=== PATIENT | female | born 1930 | race Caucasian/White ===

== ENCOUNTER 2019-01-17 09:48 | Observation (INO) ==
[2019-01-17] MEDS ORDERED: Ondansetron 4 MG/2 ML VIAL IVP PRN (10:20)
[2019-01-17] MEDS ORDERED: Acetaminophen 325 MG TABLET PO PRN (10:20)
[2019-01-17] MEDS ORDERED: Isovue-370 500 ML BOTTLE IVP ONE (10:36)
--- NOTE | 2019-01-17 10:36 | Internal Med History&Physical ---
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 Pt woke up early this AM around 4a and went to drink some water but noticed difficulty holding water in her mouth due to the facial weakness. No other problems including no visual changes, no dysphagia, no difficulty speaking. Called her daughter and went to ED. She says she has had similar problem a little over 20 years ago, shortly before her aneurysm surgery, when she was briefly hospitalized for a TIA but her symptoms then went away quickly. She takes her plavix daily. Other than some nausea for the last three days, no other symptoms including no fever, CP, SOB, abd pain, vomiting, diarrhea. In the ED, patient with persistent L facial droop; no aphasia, dysphonia, dysphagia, or limb weakness. CT head without bleed. Per discussion with [facility] ED, the pt refused tPA as well as transfer to [place] should it be warranted, and thus no stroke alert was called and no tele-stroke evaluation was performed. She preferred to stay local for neuro workup, but apparently their hospitalist program refuses TIA/CVA admissions due to no local neurology consultation available. PMH: aneurysm, CAD/NV, HTN, RA, Crohn's, hypothyroidism PSH: thyroidectomy, hysterectomy, aneurysm clipping SH: former smoker, quit ' FH: nothing contributory to current symptoms/differential Allergies: seasonal, but no known drug or food allergies Internal Medicine - H&P: Meds Atenolol 25 mg PO DAILY 01/17/19 [History] All Systems PM: A 10-system review of systems was performed and is negative for pertinent findings except as documented above in the HPI. - Constitutional Vitals: Vital Signs Temp Pulse Resp BP Pulse Ox 01/17/19 12:05 98.4 F 71 14 171/76 97 Intake and Output 01/16/19 01/17/19 01/17/19 23:59 07:59 15:59 Other: # Voids 1 Weight 49.5 kg Patient Weight 01/17/19 23:59 Weight 49.5 kg Exam: General: NAD, good eye contact, well appearing Head: Atraumatic, normocephalic. Face asymmetric, L sided droop Eyes: EOMI, sclerae anicteric ENT: Mucous membranes moist. Normal oral mucosa and dentition. Trachea midline. No cervical lymphadenopathy. Does have small goiter in each side of neck Thoracic: No visible chest wall deformities. Normal breath sounds b/l, no wheezing or crackles Cardio: Normal S1 and S2, regular rate and rhythm, does have systolic murmur Abdomen: Soft, nontender, nondistended. Bowel sounds present. No rebound Extremities: Warm, well perfused. DP pulses 2+ b/l. No clubbing, cyanosis. Does have b/l pitting edema to knees b/l and trace dependent in thighs Skin: Intact. No rashes, bruises, or ulcers Neuro: Awake, fully oriented. Good memory, concentration, attention. Speech fluent. CN intact w exception of L facial muscles with some weakness, able to close mouth and eyes only with difficulty; obvious droop at rest. Strength 5/5 in b/l UE and LE. Able to ambulate w walker. 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 CVA/TIA: OSH CT head without bleed - Frequent Neuro checks - Imaging: TTE, CTA head and neck due to hx aneurysm and unable to get MRI - Labs: lipids, A1c - continue plavix - start Lipitor [address] of zocor 20 tiw - Telemetry monitoring for arrythmia - PT/OT/Speech consults - Swallow screen - Stroke education provided - Neuro consult CAD: home plavix, statin as above HTN: uncontrolled, home triamterene hctz 37.5/25, home atenolol 25 Hypothyroidism: home synthroid 50 mcg RA: home MTX 7.5 mg weekly Crohn's: currently not on meds reportedly due to renal dysfxn Underweight: tiny PPx: lovenox Tele: yes Activity: up w assist FEN: cardiac, no MIVF Lines: PIV Consults: Neuro Code: Full Dispo: obs for CVA, anticipate 1-2 days, will be homegoing
[2019-01-17 13:15] LABS: Basophils % 0.8 %; Eosinophils # 0.1 K/mcL (0.0-0.6); Hematocrit 30.5 % (35.3-44.9); Hemoglobin 9.6 g/dL (11.5-15.4); Immature Granulocytes % 0.5 % (0-4); Lymphocytes # 0.5 K/mcL (0.6-4.6); Lymphocytes % 11.3 %; Mean Corpuscular HGB Conc 31.5 g/dL (31.6-35.5); Mean Corpuscular Hemoglobin 30.5 pg (28.0-33.3); Mean Corpuscular Volume 96.8 fL (83.0-100.0); Mean Platelet Volume 9.5 fL (9.4-12.4); Monocytes # 0.2 K/mcL (0.0-1.3); Monocytes % 4.8 %; Neutrophils # 3.2 K/mcL (1.6-8.9); Platelet Count 254 K/mcL (140-400); Red Blood Count 3.15 M/mcL (3.82-4.97); Red Cell Distribution Width 15.9 % (11.5-14.5); Segmented Neutrophils % 80.6 %
[2019-01-17 13:22] LABS: INR 0.9; Prothrombin Time 10.6 Seconds (9.4-12.1)
[2019-01-17 13:28] LABS: Estimated Average Glucose 148 mg/dl
[2019-01-17 13:33] LABS: Chol/HDL Ratio 2.3 (0-4.9)
[2019-01-17 13:35] LABS: Alanine Aminotransferase 6 Units/L (7-52); Albumin 3.8 g/dL (3.5-5.7); Alkaline Phosphatase 79 Units/L (34-104); Aspartate Amino Transferase 14 Units/L (13-39); BUN/Creatinine Ratio 33 (6-26); Bilirubin,Total 0.3 mg/dL (0.3-1.0); Blood Urea Nitrogen 37 mg/dL (8-23); Calcium 9.3 mg/dL (8.6-10.3); Carbon Dioxide 29 mEq/L (23-29); Chloride 102 mEq/L (98-107); Glucose 116 mg/dL (70-105); Osmolality,Calculated 294 (280-300); Phosphorous 3.4 mg/dL (2.7-4.5); Potassium 4.7 mEq/L (3.5-5.1); Sodium 137 mEq/L (136-145); Total Protein 7.8 g/dL (6.4-8.9); Troponin I < 0.03 ng/mL (< 0.04); eGFR For African Americans 56 (> 60); eGFR For Non-African Americans 46 (> 60)
--- NOTE | 2019-01-17 13:50 | Neurology - Consult Note ---
<Roc Browning J - Last Filed: 01/17/19 13:44> Date of Encounter: 01/17/19 Time of Encounter: 13:44 Assessment and Plan (1) CVA (cerebral vascular accident) Current Visit: Yes Status: Acute Neurology seeing in c/s for suspected CVA LKW 2100 yesterday evening; She awoke this morning at 0430 with left facial droop and dysphagia No speech/language difficulty and no sensory loss or focal weakness, no autonomic symptoms No prior h/o CVA, but significant family hx with both mother and father having CVA Refused TPA or transfer to [facility] Risk factors include Age, CAD, HTN, former smoking history and family history She endorses a history of brain aneurysm in 1999 with clipping procedure CTA head and neck are ordered and pending Get repeat CT head in the morning Echocardiogram Carotid Duplex scan With CAD currently on Plavix and Statin; recommending continuing; she reports she cannot tolerate ASA Dysphagia screening now; NPO until dysphagia screening completed Allow permissive HTN with goal SBP less than 180 NIHSS as per protocol Neurological assessments as per protocol Maintain HOB greater than 30 degrees Qualifiers: CVA mechanism: unspecified Qualified Code(s): I63.9 - Cerebral infarction, unspecified History of Present Illness Chief complaint: r/o CVA HPI: Ms. BONE is a 88 year old female with a history of brain aneurysm S/P clipping in 1999, CAD/UT, HTN, RA, hypothyroidism and Crohn's disease. She presents to [facility] with concerns for stroke. The patient reports that her last known well was approximately 9 PM yesterday evening. She awoke around 4:30 this morning to get a drink of water and noticed that she was unable to hold the water in her mouth. Thereafter she noticed a left facial droop prompting her to seek evaluation for stroke. The patient denies any personal history of stroke but admits to significant family history including both mother and father previously having CVAs. She denies any visual disturbance, headaches, head or neck stiffness, dizziness, dysarthria, speech last night which dysfunction, paresthesias or focal weakness. Additionally, she denies chest pain, shortness of breath, palpitations, nausea, vomiting, abdominal pain, fevers, chills, dysuria or hematuria. At the time of my assessment this afternoon her left facial asymmetry of the left mouth persists. Of note, due to history of aneurysmal clipping she is unable to undergo MRI. The internal medicine team has ordered CT angiogram of the head and neck and these are pending. We will repeat CT imaging in the morning. The CBC was reviewed and revealed a mild anemia stable at 9.6. CMP withing showing GFR of 46 baseline unclear, and lipid panel as within expected range. Neurology will continue to follow and provide assistance with CVA workup. Past Med Surg Social Fam HX - Past Medical History Additional medical history: brain aneeurysm,chrons,hypothyroidism, goiter,RA, Anemia, coil placement Psychiatric history: anxiety - Past Surgical History Surgical History: hysterectomy Additional surgical history: partial thyroidectomy, stomach surgery, - Social History Smoking Status: Former smoker Packs per day: less than pack a day Smokeless Tobacco Status: No Alcohol use: none Drug use: none - Family History Mother Hx Family Neuromuscular Disorders: Yes (CVA) Father Hx Family Neuromuscular Disorders: Yes (CVA) Medications and Allergies Atenolol [Tenormin] 25 mg PO DAILY 01/17/19 [History] Clopidogrel [Plavix] 75 mg PO Q48H 01/17/19 [History] Ferrous Sulfate [Iron] 325 mg PO BID 01/17/19 [History] Folic Acid 1 mg PO BID 01/17/19 [History] LORazepam [Ativan] 0.25 mg PO DAILY PRN 01/17/19 [History] Levothyroxine [Synthroid] 50 mcg PO SUTUTHSA 01/17/19 [History] Methotrexate [Otrexup] 7.5 mg PO TH 01/17/19 [History] Simvastatin [Zocor] 20 mg PO MOWEFR 01/17/19 [History] Triamterene/HCTZ 37.5/25mg [Dyazide] 1 tab PO DAILY 01/17/19 [History] Allergy/AdvReac Type Severity Reaction Status Date / Time Penicillins [PCN] Allergy Rash Verified 01/17/19 19:04 phenytoin [From Dilantin] Allergy Redness of Verified 01/17/19 19:04 Skin aspirin [ASA] AdvReac Nose Bleed Verified 01/17/19 19:04 All Systems: The remainder of the systems were reviewed and are negative Review of Systems: REVIEW OF SYSTEMS GENERAL: Negative for any nausea, vomiting, fevers, chills NEUROLOGIC: Negative for any blurry vision, blind spots, double vision, dysarthria, hemiparesis, hemisensory deficits, vertigo, ataxia, seizures, paralysis, tingling, numbness, unilateral weakness or numbness/tingling Positive- left facial droop, dysphagia HEENT: Negative for any head trauma, neck trauma The remainder of the review of systems reviewed and found to be negative Physical Examination - Vital Signs Vital Signs: Initial Vital Signs Temp Pulse Resp BP Pulse Ox 98.4 F 71 14 171/76 97 01/17/19 12:05 01/17/19 12:05 01/17/19 12:05 01/17/19 12:01/17/19 12:05 - Exam Exam: Examination: General Examination: *CONSTITUTIONAL: Alert and oriented x3, no acute distress *GENERAL APPEARANCE OF PATIENT appears healthy and well groomed *EYES: pupils equal, round, reactive to light and accommodation, conjunctiva clear *CARDIOVASCULAR: no peripheral edema, distal temperature normal, dorsalis pedis pulses normal. Refer to vital signs * MUSCULOSKELETAL: *GAIT AND STATION: chronic left leg weakness and shuffling gait, no ataxia seen, no spasticity but her gait is shuffled *ASSESSMENT OF MUSCLE STRENGTH IN THE UPPER AND LOWER EXTREMITIES bilateral deltoid, bicep, tricep, beauty artist strength, hip flexors ,anterior tibialis, dorsoflexion of the foot 4/5 *MUSCLE TONE IN THE UPPER AND LOWER EXTREMITIES normal. No abnormal movements, fasciculations or atrophy identified. Neurological: *ORIENTATION to person, situation, time and place *LANGUAGE AND FUNCTION no significant aphasia or dysarthia was noted. *ATTENTION AND CONCENTRATION are normal *LANGUAGE FUNCTION no significant aphasia or dysarthia was noted. *FUND OF KNOWLEDGE aware of current events, past history, vocabulary *MENTAL attention span and concentration normal. *CN II optic fundi were normal, no papilledema noted. *CN III,IV, PERRLA extraocular eye movements were full, no nystagmus and no ptosis noted. *CN V shows normal sensation and jaw opens symmetrically. *CN VII left facial droop along the mouth *CN VIII shows no significant hearing loss on exam *CN IX-X palate elevated symmetrically *CN XI normal strength in the sternocleidomastoid muscles, symmetrical shoulder shrugging. *CN XII tongue protruded in the midline, with normal strength and movement. *SENSORY EXAMINATION light touch intact *REFLEXES: deep tendon reflexes were normal and symmetrical , grade 1/4 diffusely, no pathological reflexes were noted. *CEREBELLAR TESTING normal finger to nose, heel/knee/reyes *PAIN LEVEL 0/10 Results - Laboratory Findings CBC and BMP: 01/17/19 13:01 01/17/19 13:01 Abnormal lab findings: Abnormal lab results WBC 4.0 K/mcL (4.3-11.1) L 01/17/19 13:01 RBC 3.15 M/mcL (3.82-4.97) L 01/17/19 13:01 Hgb 9.6 g/dL (11.5-15.4) L 01/17/19 13:01 Hct 30.5 % (35.3-44.9) L 01/17/19 13:01 MCHC 31.5 g/dL (31.6-35.5) L 01/17/19 13:01 RDW 15.9 % (11.5-14.5) H 01/17/19 13:01 Lymphocytes # 0.5 K/mcL (0.6-4.6) L 01/17/19 13:01 BUN 37 mg/dL (8-23) H 01/17/19 13:01 Est GFR ( Amer) 56 (> 60) L 01/17/19 13:01 Est GFR (Non-Af Amer) 46 (> 60) L 01/17/19 13:01 BUN/Creatinine Ratio 33 (6-26) H 01/17/19 13:01 Glucose 116 mg/dL (70-105) H 01/17/19 13:01 ALT 6 Units/L (7-52) L 01/17/19 13:01 Globulin 4.0 g/dL (2.4-3.5) H 01/17/19 13:01 Albumin/Globulin Ratio 1.0 (1.1-2.2) L 01/17/19 13:01 HDL Cholesterol 72 mg/dL (40-59) H 01/17/19 13:01 Consult Discharge Plan - Plan Referrals: Joaquim Bahena MD [Primary Care Provider] - <Thompson Vargas I - Last Filed: 01/18/19 08:53> Date of Encounter: 01/17/19 Assessment and Plan (1) CVA (cerebral vascular accident) Current Visit: Yes Status: Acute I have personally performed a face to face diagnostic evaluation, including HPI, EXAM, which is included in the Assesment and plan, which was discussed with Roc Browning CNP, I agree with the above outlined documentation. Patient likely has suffered a small brainstem stroke considering facial drooping as well as difficulty with swallowing though no other focal motor deficit noted She does have an history of brain aneurysm clipping no evidence of any bleed on CT scan We will continue to monitor repeat imaging studies tomorrow Thompson Vargas MD. Neurology Qualifiers: CVA mechanism: unspecified Qualified Code(s): I63.9 - Cerebral infarction, unspecified History of Present Illness HPI: Ms. BONE is a 88 year old female All Systems: The remainder of the systems were reviewed and are negative Physical Examination - Vital Signs Vital Signs: Initial Vital Signs Temp Pulse Resp BP Pulse Ox 98.4 F 71 14 171/76 97 01/17/19 12:05 01/17/19 12:05 01/17/19 12:05 01/17/19 12:05 01/17/19 12:05 Results - Laboratory Findings CBC and BMP: 01/18/19 04:13 01/18/19 04:13 Abnormal lab findings: Abnormal lab results WBC 4.0 K/mcL (4.3-11.1) L 01/17/19 13:01 RBC 3.15 M/mcL (3.82-4.97) L 01/17/19 13:01 Hgb 9.6 g/dL (11.5-15.4) L 01/17/19 13:01 Hct 30.5 % (35.3-44.9) L 01/17/19 13:01 MCHC 31.5 g/dL (31.6-35.5) L 01/17/19 13:01 RDW 15.9 % (11.5-14.5) H 01/17/19 13:01 Lymphocytes # 0.5 K/mcL (0.6-4.6) L 01/17/19 13:01 BUN 37 mg/dL (8-23) H 01/17/19 13:01 Est GFR ( Amer) 56 (> 60) L 01/17/19 13:01 Est GFR (Non-Af Amer) 46 (> 60) L 01/17/19 13:01 BUN/Creatinine Ratio 33 (6-26) H 01/17/19 13:01 Glucose 116 mg/dL (70-105) H 01/17/19 13:01 Hemoglobin A1c 6.8 % (-5.6) H 01/17/19 13:01 ALT 6 Units/L (7-52) L 01/17/19 13: Globulin 4.0 g/dL (2.4-3.5) H 01/17/19 13:01 Albumin/Globulin Ratio 1.0 (1.1-2.2) L 01/17/19 13:01 HDL Cholesterol 72 mg/dL (40-59) H 01/17/19 13:01
[2019-01-18 04:56] LABS: Hematocrit 27.4 % (35.3-44.9); Hemoglobin 8.9 g/dL (11.5-15.4); Mean Corpuscular HGB Conc 32.5 g/dL (31.6-35.5); Mean Corpuscular Hemoglobin 31.2 pg (28.0-33.3); Mean Corpuscular Volume 96.1 fL (83.0-100.0); Platelet Count 245 K/mcL (140-400); Red Blood Count 2.85 M/mcL (3.82-4.97); Red Cell Distribution Width 15.6 % (11.5-14.5); White Blood Count 5.8 K/mcL (4.3-11.1)
[2019-01-18 05:17] LABS: Calcium 8.7 mg/dL (8.6-10.3); Magnesium 1.9 mg/dL (1.6-2.6); Potassium 4.4 mEq/L (3.5-5.1)
[2019-01-18] MEDS ORDERED: *HR* Enoxaparin 30 MG/0.3 ML SYRINGE SQ SCH (06:00)
[2019-01-18] MEDS ORDERED: *HR* LORazepam 0.5 MG TABLET PO PRN (08:05)
--- NOTE | 2019-01-18 08:57 | Internal Med Progress Note ---
Hospitalist Progress Note - Encounter Date of Encounter: 01/18/19 Time of Encounter: 08:54 - Subjective Interval History: Ms. BONE is a 88 year old female with a history of brain aneurysm S/P clipping in 1999, CAD/AR, HTN, RA, hypothyroidism and Crohn's disease. She presents to [facility] with concerns for stroke. The patient reports that her last known well was approximately 9 PM yesterday evening. She awoke around 4:30 this morning to get a drink of water and noticed that she was unable to hold the water in her mouth. Currently on Plavix. CT/CTA head showed acute infarct within the right parietal lobe and H indeterminate but possible acute or subacute infarct within the right frontal lobe, occlusion of proximal right vertebral artery, and status post aneurysm clipping changes. Neurology was consulted. Patient seen and examined in the room. Left facial droop noted. She was able to eat breakfast without signs of aspiration. Speech therapist just evaluated patient. - Exam Vitals: Temp Pulse Resp BP Pulse Ox 98.2 F 60 14 140/72 97 01/18/19 07:26 01/18/19 07:26 01/18/19 07:26 01/18/19 07:26 01/18/19 07:26 Exam: General: NAD, good eye contact, well appearing Head: Atraumatic, normocephalic. Face asymmetric, L sided droop Eyes: EOMI, sclerae anicteric ENT: Mucous membranes moist. Normal oral mucosa and dentition. Trachea midline. No cervical lymphadenopathy. Does have small goiter in each side of neck Thoracic: No visible chest wall deformities. Normal breath sounds b/l, no wheezing or crackles Cardio: Normal S1 and S2, regular rate and rhythm, does have systolic murmur Abdomen: Soft, nontender, nondistended. Bowel sounds present. No rebound Extremities: Warm, well perfused. DP pulses 2+ b/l. No clubbing, cyanosis. Does have b/l pitting edema to knees b/l and trace dependent in thighs Skin: Intact. No rashes, bruises, or ulcers Neuro: Awake, fully oriented. Good memory, concentration, attention. Speech fluent. CN intact w exception of L facial muscles with some weakness, able to close mouth and eyes only with difficulty; obvious droop at rest. Strength 5/5 in b/l UE and LE. Able to ambulate w walker. - Assessment and Plan (1) CVA (cerebral vascular accident) Current Visit: Yes Status: Acute Assessment and Plan: 88 year old female presented with left side facial droop. CT and CTA showed right parietal acute CVA and right subacute frontal CVA, and occlusion of right vertebral artery. Patient currently takes Plavix. Speech therapy was consulted, appreciate help. Neurology following, appreciate help. (2) CAD (coronary artery disease) Current Visit: No Status: Chronic Assessment and Plan: No chest pain, continue home medications. (3) HTN (hypertension) Current Visit: No Status: Chronic Assessment and Plan: BP controlled, continue home medications. (4) Hypothyroidism Current Visit: No Status: Chronic Assessment and Plan: Currently not on any medications, continue monitoring. (5) Crohn disease Current Visit: No Status: Chronic Assessment and Plan: On remission, continue home medication. (6) DVT prophylaxis Current Visit: Yes Status: Acute Assessment and Plan: Continue Lovenox. - Time Spent with Patient Total time spent is greater than 50% in coordination of care (as documented) at patient's floor/unit and/or counseling patient: Greater than 35 minutes Plan of Care Discussed with: patient Internal Medicine: Result - Labs CBC & Chem 7: 01/18/19 04:13 01/18/19 04:13 Labs: Short CBC 01/17/19 01/18/19 Range/Units 13:01 04:13 WBC 4.0 L 5.8 (4.3-11.1) K/mcL Hgb 9.6 L 8.9 L (11.5-15.4) g/dL Hct 30.5 L 27.4 L (35.3-44.9) % Plt Count 254 245 (140-400) K/mcL Neutrophils # 3.2 (1.6-8.9) K/mcL BMP 01/17/19 01/18/19 13:01 04:13 Sodium 137 136 Potassium 4.7 4.4 Chloride 102 102 Carbon Dioxide 29 26 BUN 37 H 39 H Creatinine 1.12 1.17 Glucose 116 H 102 Calcium 9.3 8.7 Cardiac Enzymes 01/17/19 Range/Units 13:01 Troponin I < 0.03 (< 0.04) ng/mL Liver Function 01/17/19 Range/Units 13:01 Total Bilirubin 0.3 (0.3-1.0) mg/dL AST 14 (13-39) Units/L ALT 6 L (7-52) Units/L Alkaline Phosphatase 79 (34-104) Units/L Albumin 3.8 (3.5-5.7) g/dL - ABG Interpretation ABG results: PT/INR, D-dimer PT 10.6 Seconds (9.4-12.1) 01/17/19 13:01 - Impressions Impressions Head CTA 01/17/19 10:36 IMPRESSION: Acute infarct within the high right parietal lobe. Age-indeterminate but possibly acute or subacute infarct within the right frontal lobe. Status post aneurysm clipping with large aneurysmal remnant measuring up to 13.2 mm in diameter within the right sylvian fissure. 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 No large vessel occlusion identified within the head. Incidentally noted pulmonary emphysema and thyroid nodules. Findings were discussed with Dr. Hernández At 8:37 pm on 01/17/2019. RECOMMENDATIONS: Managing Incidental Thyroid Nodule Detected at CT or MRI or US 1. Further evaluation by thyroid Ultrasound recommended for these incidental nodules: Patient Age 18 years or less - Nodule of any size Patient Age 19-34 years old - Nodule 1 cm in size or greater Patient Age 35 years or more - Nodule 1.5 cm in size or greater 2. Follow up thyroid ultrasound also recommend in these scenarios - Solitary nodule with high risk imaging features (locally invasive nodule or suspicious lymph nodes) - Heterogeneous, enlarged thyroid gland. - Increased uptake on PET 3. NO further imaging is recommended in the following scenarios - Any nodule not meeting above criteria. - Those patients with limited life expectancy or significant Co-morbidities. Note: These recommendations do not apply to pts. w/ increased risk for thyroid cancer or pts. with symptomatic thyroid disease. Recommendations for f/u of Incidental Thyroid Nodules (ITN) found on CT, MR, NM and Extrathyroidal US are based upon the ACR white paper and Luke 3-tiered system for managing ITNs: J Am Lucie Radiol. 2015 Jun;12(2): 143-50 D/ / Israel Park MD / Israel Park MD Interpreting Provider: Israel Park MD Neck CTA 01/17/19 10:36 IMPRESSION: Acute infarct within the high right parietal lobe. Age-indeterminate but possibly acute or subacute infarct within the right frontal lobe. Status post aneurysm clipping with large aneurysmal remnant measuring up to 13.2 mm in diameter within the right sylvian fissure. 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 No large vessel occlusion identified within the head. Incidentally noted pulmonary emphysema and thyroid nodules. Findings were discussed with Dr. Hernández At 8:37 pm on 01/17/2019. RECOMMENDATIONS: Managing Incidental Thyroid Nodule Detected at CT or MRI or US 1. Further evaluation by thyroid Ultrasound recommended for these incidental nodules: Patient Age 18 years or less - Nodule of any size Patient Age 19-34 years old - Nodule 1 cm in size or greater Patient Age 35 years or more - Nodule 1.5 cm in size or greater 2. Follow up thyroid ultrasound also recommend in these scenarios - Solitary nodule with high risk imaging features (locally invasive nodule or suspicious lymph nodes) - Heterogeneous, enlarged thyroid gland. - Increased uptake on PET 3. NO further imaging is recommended in the following scenarios - Any nodule not meeting above criteria. - Those patients with limited life expectancy or significant Co-morbidities. Note: These recommendations do not apply to pts. w/ increased risk for thyroid cancer or pts. with symptomatic thyroid disease. Recommendations for f/u of Incidental Thyroid Nodules (ITN) found on CT, MR, NM and Extrathyroidal US are based upon the ACR white paper and Luke 3-tiered system for managing ITNs: J Am Lucie Radiol. 2015 Jun;12(2): 143-50 D/ / Israel Park MD / Israel Park MD Interpreting Provider: Israel Park MD Consult Discharge Plan - Plan Referrals: Joaquim Bahena MD [Primary Care Provider] - _ (1) CVA (cerebral vascular accident) Qualifiers: CVA mechanism: unspecified Qualified Code(s): I63.9 - Cerebral infarction, unspecified (2) CAD (coronary artery disease) Qualifiers: Coronary Disease-Associated Artery/Lesion type: [place] artery [place] vs. transplanted heart: [place] heart Associated angina: without angina Qualified Code(s): I25.10 - Atherosclerotic heart disease of [place] coronary artery without angina pectoris (3) HTN (hypertension) Qualifiers: Hypertension type: essential hypertension Qualified Code(s): I10 - Essential (primary) hypertension (4) Hypothyroidism Qualifiers: Hypothyroidism type: unspecified Qualified Code(s): E03.9 - Hypothyroidism, unspecified (5) Crohn disease Qualifiers: Digestive disease complication type: unspecified complication
[2019-01-18] MEDS ORDERED: Folic Acid 1 MG TABLET PO SCH (09:00)
--- NOTE | 2019-01-18 09:42 | Neurology Progress Note ---
<Roc Browning J - Last Filed: 01/18/19 09:33> Date of Encounter: 01/18/19 Time of Encounter: 09:33 Assessment and Plan (1) CVA (cerebral vascular accident) Current Visit: Yes Status: Acute Acute CVA with left facial droop; no other neurological deficits Unable to have MRI d/t surgical clipping CTA revrealed an acute infarct within the high right parietal lobe and at age- indeterminate but possibly acute versus subacute infarct within the right frontal lobe Further, the CT angiogram revealed occlusion of the proximal right vertebral art abdi and no large vessel occlusion is identified within the head. Clinically, she remains stable without development of further neurological deficits She is already on both Plavix and statin medication and we are recommending continuation of these meds Continue with neurological assessments per protocol Continue with PT/OT and speech therapy Otherwise continuous medical and supportive care Please ensure follow-up with neurology in 7-10 days of discharge Qualifiers: CVA mechanism: unspecified Qualified Code(s): I63.9 - Cerebral infarction, unspecified Subjective Principal diagnosis: CVA Interval history: Ms. Jackson is an 88-year-old female who is being seen in follow-up for suspected CVA. Left-sided facial droop persists morning however, clinically she remained stable without any further neurological deficits. She denies any additional complaints. Objective - Constitutional Vitals: Temp Pulse Resp BP Pulse Ox 98.2 F 60 14 140/72 97 01/18/19 07:26 01/18/19 07:26 01/18/19 07:26 01/18/19 07:26 01/18/19 07:26 Exam: Examination: General Examination: *CONSTITUTIONAL: Alert and oriented x3, no acute distress *GENERAL APPEARANCE OF PATIENT appears healthy and well groomed *EYES: pupils equal, round, reactive to light and accommodation, conjunctiva clear without masses or ulcerations, fundi normal. *CARDIOVASCULAR: no peripheral edema, distal temperature normal, dorsalis pedis pulses normal. Refer to vital signs * MUSCULOSKELETAL: *GAIT AND STATION: normal, with normal Romberg testing, no abnormalities such as broad base gait or spasticity *ASSESSMENT OF MUSCLE STRENGTH IN THE UPPER AND LOWER EXTREMITIES bilateral deltoid, bicep, tricep, foam rubber molder strength, hip flexors ,anterior tibialis, dorsoflexion of the foot 5/5 *MUSCLE TONE IN THE UPPER AND LOWER EXTREMITIES normal. No abnormal movements, fasciculations or atrophy identified. Neurological: *ORIENTATION to person, situation, time and place *LANGUAGE AND FUNCTION no significant aphasia or dysarthia was noted. *ATTENTION AND CONCENTRATION are normal *LANGUAGE FUNCTION no significant aphasia or dysarthia was noted. *FUND OF KNOWLEDGE aware of current events, past history, vocabulary *MENTAL attention span and concentration normal. *CN II optic fundi were normal, no papilledema noted. *CN III,IV, PERRLA extraocular eye movements were full, no nystagmus and no ptosis noted. *CN V left facial droop *CN VIIdecreased facial movement on let side of mouth *CN VIII shows no significant hearing loss on exam *CN IX-Xpalate elevated symmetrically *CN XI normal strength in the sternocleidomastoid muscles, symmetrical shoulder shrugging. *CN XII tongue protruded in the midline, with normal strength and movement. *SENSORY EXAMINATION light touch intact *REFLEXES: deep tendon reflexes were normal and symmetrical , grade 2/4 diffusely, no pathological reflexes were noted. *CEREBELLAR TESTING normal finger to nose, heel/knee/reyes *PAIN LEVEL 0/10 Results - Laboratory Findings CBC and BMP: 01/18/19 04:13 01/18/19 04:13 Abnormal lab findings: Abnormal lab results WBC 4.0 K/mcL (4.3-11.1) L 01/17/19 13:01 RBC 2.85 M/mcL (3.82-4.97) L 01/18/19 04:13 Hgb 8.9 g/dL (11.5-15.4) L 01/18/19 04:13 Hct 27.4 % (35.3-44.9) L 01/18/19 04:13 MCHC 31.5 g/dL (31.6-35.5) L 01/17/19 13:01 RDW 15.6 % (11.5-14.5) H 01/18/19 04:13 Lymphocytes # 0.5 K/mcL (0.6-4.6) L 01/17/19 13:01 BUN 39 mg/dL (8-23) H 01/18/19 04:13 Est GFR ( Amer) 53 (> 60) L 01/18/19 04:13 Est GFR (Non-Af Amer) 44 (> 60) L 01/18/19 04:13 BUN/Creatinine Ratio 33 (6-26) H 01/18/19 04:13 Glucose 116 mg/dL (70-105) H 01/17/19 13:01 Hemoglobin A1c 6.8 % (-5.6) H 01/17/19 13:01 ALT 6 Units/L (7-52) L 01/17/19 13:01 Globulin 4.0 g/dL (2.4-3.5) H 01/17/19 13:01 Albumin/Globulin Ratio 1.0 (1.1-2.2) L 01/17/19 13:01 HDL Cholesterol 72 mg/dL (40-59) H 01/17/19 13:01 Consult Discharge Plan - Plan Referrals: Joaquim Bahena MD [Primary Care Provider] - 01/28/19 10:00 am <Thompson Vargas I - Last Filed: 01/18/19 11:36> Date of Encounter: 01/18/19 Assessment and Plan (1) CVA (cerebral vascular accident) Current Visit: Yes Status: Acute I have personally performed a face to face diagnostic evaluation, including HPI, EXAM, which is included in the Assesment and plan, which was discussed with Roc Browning CNP, I agree with the above outlined documentation. 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 NeurologyI Qualifiers: CVA mechanism: unspecified Qualified Code(s): I63.9 - Cerebral infarction, unspecified Objective - Constitutional Vitals: Temp Pulse Resp BP Pulse Ox 98.3 F 60 17 130/68 99 01/18/19 10:55 01/18/19 10:55 01/18/19 10:55 01/18/19 10:55 01/18/19 10:55 Results - Laboratory Findings CBC and BMP: 01/18/19 04:13 01/18/19 04:13 Abnormal lab findings: Abnormal lab results WBC 4.0 K/mcL (4.3-11.1) L 01/17/19 13:01 RBC 2.85 M/mcL (3.82-4.97) L 01/18/19 04:13 Hgb 8.9 g/dL (11.5-15.4) L 01/18/19 04:13 Hct 27.4 % (35.3-44.9) L 01/18/19 04:13 MCHC 31.5 g/dL (31.6-35.5) L 01/17/19 13:01 RDW 15.6 % (11.5-14.5) H 01/18/19 04:13 Lymphocytes # 0.5 K/mcL (0.6-4.6) L 01/17/19 13:01 BUN 39 mg/dL (8-23) H 01/18/19 04:13 Est GFR ( Amer) 53 (> 60) L 01/18/19 04:13 Est GFR (Non-Af Amer) 44 (> 60) L 01/18/19 04:13 BUN/Creatinine Ratio 33 (6-26) H 01/18/19 04:13 Glucose 116 mg/dL (70-105) H 01/17/19 13:01 Hemoglobin A1c 6.8 % (-5.6) H 01/17/19 13:01 ALT 6 Units/L (7-52) L 01/17/19 13:01 Globulin 4.0 g/dL (2.4-3.5) H 01/17/19 13:01 Albumin/Globulin Ratio 1.0 (1.1-2.2) L 01/17/19 13:01 HDL Cholesterol 72 mg/dL (40-59) H 01/17/19 13:01
[2019-01-18 10:59] VITALS: BP 130/68
--- NOTE | 2019-01-18 12:43 | Discharge Summary ---
- NOTES TO OUTPATIENT PROVIDER Notes to Outpatient Provider: f/u with PCP within a week. f/u with neurology within a week. Date of Encounter: 01/18/19 Time of Encounter: 12:41 - Discharge Diagnosis (1) CVA (cerebral vascular accident) Priority: Primary Status: Acute Qualifiers: CVA mechanism: unspecified Qualified Code(s): I63.9 - Cerebral infarction, unspecified (2) CAD (coronary artery disease) Priority: Secondary Status: Chronic Qualifiers: Coronary Disease-Associated Artery/Lesion type: [place] artery [place] vs. transplanted heart: [place] heart Associated angina: without angina Qualified Code(s): I25.10 - Atherosclerotic heart disease of [place] coronary artery without angina pectoris (3) HTN (hypertension) Priority: Secondary Status: Chronic Qualifiers: Hypertension type: essential hypertension Qualified Code(s): I10 - Essential (primary) hypertension (4) Hypothyroidism Priority: Secondary Status: Chronic Qualifiers: Hypothyroidism type: unspecified Qualified Code(s): E03.9 - Hypothyroidism, unspecified (5) Crohn disease Priority: Secondary Status: Chronic Qualifiers: Gastrointestinal tract location: unspecified location Digestive disease complication type: unspecified complication Qualified Code(s): K50.919 - Crohn's disease, unspecified, with unspecified complications (6) DVT prophylaxis Priority: Primary Status: Acute Hospital course: Ms. BONE is a 88 year old female with a history of brain aneurysm S/P clipping in 1999, CAD/OK, HTN, RA, hypothyroidism and Crohn's disease. She presents to [facility] with concerns for stroke. The patient reports that her last known well was approximately 9 PM yesterday evening. She awoke around 4:30 this morning to get a drink of water and noticed that she was unable to hold the water in her mouth. Currently on Plavix. CT/CTA head showed acute infarct within the right parietal lobe and indeterminate but possible acute or subacute infarct within the right frontal lobe, occlusion of proximal right vertebral artery, and status post aneurysm clipping changes. Neurology was consulted. Recommended to continue plavix. PT/OT evaluation and there is no PT need. Speech therapy evaluation has no aspiration. Pt is dishcarged home today, f/u with PCP and neurology as scheduled. Discharge discussed with: patient Time spent discussing smoking cessation with patient: more than 10 minutes - Time Spent with Patient Total time spent providing and/or coordinating discharge services: Time spent: Greater than 30 minutes - Discharge Medications Prescriptions: Continued Atenolol [Tenormin] 25 mg PO DAILY Simvastatin [Zocor] 20 mg PO MOWEFR Ferrous Sulfate [Iron] 325 mg PO BID Clopidogrel [Plavix] 75 mg PO Q48H Methotrexate [Otrexup] 7.5 mg PO TH Folic Acid 1 mg PO BID Triamterene/HCTZ 37.5/25mg [Dyazide] 1 tab PO DAILY Levothyroxine [Synthroid] 50 mcg PO SUTUTHSA LORazepam [Ativan] 0.25 mg PO DAILY PRN PRN Reason: Anxiety Home Medications: Atenolol [Tenormin] 25 mg PO DAILY 01/17/19 [History] Clopidogrel [Plavix] 75 mg PO Q48H 01/17/19 [History] Ferrous Sulfate [Iron] 325 mg PO BID 01/17/19 [History] Folic Acid 1 mg PO BID 01/17/19 [History] LORazepam [Ativan] 0.25 mg PO DAILY PRN 01/17/19 [History] Levothyroxine [Synthroid] 50 mcg PO SUTUTHSA 01/17/19 [History] Methotrexate [Otrexup] 7.5 mg PO TH 01/17/19 [History] Simvastatin [Zocor] 20 mg PO MOWEFR 01/17/19 [History] Triamterene/HCTZ 37.5/25mg [Dyazide] 1 tab PO DAILY 01/17/19 [History] Allergies/Adverse Reactions: Allergy/AdvReac Type Severity Reaction Status Date / Time Penicillins [PCN] Allergy Rash Verified 01/17/19 19:04 phenytoin [From Dilantin] Allergy Redness of Verified 01/17/19 19:04 Skin aspirin [ASA] AdvReac Nose Bleed Verified 01/17/19 19:04 Date of admission: 01/17/19 11:52 Primary care physician: Joaquim Bahena MD Consults: 01/17/19 10:24 Consult to Occupational Therapy [CONS] Routine Comment: Evaluate, develop and implement POC Reason for Consult: cva Does patient have active BEDREST order?: No Is patient medically & hemodynamically stable?: Yes Consult to Physical Therapy [CONS] Routine Comment: Evaluate, develop and implement POC Reason for Consult: cva Does patient have active BEDREST order?: No Is patient medically & hemodynamically stable?: Yes Consult to Speech Therapy [CONS] Routine Comment: Evaluate, develop and implement POC Reason for Consult: swallow eval Call Completed: No 01/17/19 12:47 Consult to Neurology [CONS] Routine Consulting Provider: Neurology [facility] Reason for Consult: L facial droop c/w CVA Call Completed: Yes Anticipated date of discharge: 01/18/19 - Constitutional Vitals: Temp Pulse Resp BP Pulse Ox 98.3 F 60 17 130/68 99 01/18/19 10:55 01/18/19 10:55 01/18/19 10:55 01/18/19 10:55 01/18/19 10:55 General appearance: Present: A&O X 3 Exam: General: NAD, good eye contact, well appearing Head: Atraumatic, normocephalic. Face asymmetric, L sided droop Eyes: EOMI, sclerae anicteric ENT: Mucous membranes moist. Normal oral mucosa and dentition. Trachea midline. No cervical lymphadenopathy. Does have small goiter in each side of neck Thoracic: No visible chest wall deformities. Normal breath sounds b/l, no wheezing or crackles Cardio: Normal S1 and S2, regular rate and rhythm, does have systolic murmur Abdomen: Soft, nontender, nondistended. Bowel sounds present. No rebound Extremities: Warm, well perfused. DP pulses 2+ b/l. No clubbing, cyanosis. Does have b/l pitting edema to knees b/l and trace dependent in thighs Skin: Intact. No rashes, bruises, or ulcers Neuro: Awake, fully oriented. Good memory, concentration, attention. Speech fluent. CN intact w exception of L facial muscles with some weakness, able to close mouth and eyes only with difficulty; obvious droop at rest. Strength 5/5 in b/l UE and LE. Able to ambulate w walker. - Patient Status Disposition: Home, Self-Care Condition: Fair Functional capacity at discharge: uses cane/walker Overall status at discharge: patient is progressing back to baseline - Discharge Instructions Follow Up With: Joaquim Bahena MD [Primary Care Provider] - 01/28/19 10:00 am - Diet and Activity Activity: increase activity as tolerated Diet: low fat, low cholesterol, low salt diet
[2019-01-24] MEDS ORDERED: *HR* Methotrexate 2.5 MG TABLET PO SCH (08:05)
== END 2019-01-18 16:03 | disposition home or self-care (01) ==
LOC: 3BNU
PROVIDERS: ADMIT Internal Medicine; ATTEND Internal Medicine